=== PATIENT | female | born 1955 | race Caucasian/White ===

== ENCOUNTER 2017-07-06 10:20 | Day surgery (SDC) | payer OTHER ==
[~2017-07-06 10:20] MED LIST: Lactated Ringers 1,000 ML IV SCH; Sodium Chloride 0.9% 5 ML Syringe FLUSH PRN
[2017-07-06] MEDS ORDERED: Lactated Ringers 1,000 ML IV SCH (10:30)
[2017-07-06] MEDS ORDERED: Sodium Chloride 0.9% 5 ML Syringe FLUSH PRN (10:30)
[2017-07-06] MEDS ORDERED: Midazolam 1 MG/ML 2 ML SDV ONE (10:49)
[2017-07-06] MEDS ORDERED: Propofol 200 MG/20 ML SDV ONE (10:49)
[2017-07-06] MEDS ORDERED: fentaNYL 100 MCG/2 ML SDV ONE (10:49)
[2017-07-06] MEDS ORDERED: Lidocaine 2% 5 ML SDV ONE (11:39)
[2017-07-06] MEDS ORDERED: Midazolam 1 MG/ML 2 ML SDV IV ONE (12:49)
[2017-07-06] MEDS ORDERED: Propofol 200 MG/20 ML SDV IV ONE (12:49)
[2017-07-06] MEDS ORDERED: fentaNYL 100 MCG/2 ML SDV IV ONE (12:49)
--- NOTE | 2017-07-06 13:27 | PCM.OPNOTE ---
- General Post-Op/Procedure Note Date of Surgery/Procedure: 07/06/17 Operative Procedure(s): Upper GI endoscopy and lower GI endoscopy. Findings: The upper GI endoscopy was completely normal. The lower GI endoscopy revealed presence of diverticuli in the sigmoid colon. One of the diverticuli was bleeding. Anesthesia Technique: MAC Primary Surgeon: Hunter Cancino Condition: Good Free Text/Narrative:: INFORMED CONSENT: Patient is here today for elective upper GI endoscopy. All aspects of this procedure have been discussed with the patient. All possible complications also, including possibility of perforation, infection, pain, bleeding, numbness of the throat, swallowing difficulty and unknown complications. In the event of perforation the patient may need surgical exploration to repair the defect. The patient understands fully well. Patient did not have any further questions for me at the end of my interview. The patient wishes for me to proceed. INSTRUMENT USED: Video gastroscope Indications: Gastric bleeding and persistent upper abdominal pain and discomfort. Rule out peptic ulcer disease, gastric outlet obstruction, gastric malignancy etc. ANESTHESIA: [MAC] ASA CLASSIFICATION: [1] PROCEDURE PERFORMED: [] PHARYNX: Normal. ESOPHAGUS: Normal. Proximal: Normal. Middle: Normal. Lower: Normal. GE Junction: Normal. STOMACH: Normal. Cardia: Normal. Fundus: Normal. Lesser Curvature: Normal. Greater Curvature: Normal. Antrum: Normal. Pylorus: Normal. DUODENUM: Normal. First Part: Normal. Second Part: Normal. Third Part: Normal. RETROFLEXION: Normal. BIOPSY: None. TOLERANCE: Excellent. COMPLICATIONS: None.
--- NOTE | 2017-07-06 13:29 | PCM.OPNOTE ---
- General Post-Op/Procedure Note Date of Surgery/Procedure: 07/06/17 Operative Procedure(s): Colonoscopy Pre Op Diagnosis: Rectal bleeding, rule out diverticular bleeding, Colon malignancy, polyps etc. Anesthesia Technique: MAC Primary Surgeon: Hunter Cancino Condition: Good Free Text/Narrative:: INFORMED CONSENT: Patient is here today for elective colonoscopy. All aspects of this procedure have been discussed with the patient. All possible complications also, including possibility of perforation, infection, pain, bleeding and unknown complications. In the event of perforation patient may need to have abdominal exploration, colon resection, colostomy and even was discussed. Anesthetic complications were handled by anesthesia department. The patient understands fully well. Patient did not have any further questions for me at the end of my interview. The patient wishes for me to proceed. PREOPERATIVE DIAGNOSIS/INDICATIONS: [Lower GI bleeding] POSTOPERATIVE DIAGNOSIS: [Diverticular bleeding] INSTRUMENT USED: [place] videocolonoscope. ASA CLASSIFICATION: [] ANESTHESIA: Continuous EKG, oximetry and intermittent blood pressure and respiratory monitoring were performed throughout the procedure. IV Versed and Fentanyl were administered. PROCEDURE PERFORMED: Colonoscopy POSITIONS OF PATIENT: Left lateral. RECTUM: Normal. SIGMOID COLON: Normal. DESCENDING COLON: Normal. SPLENIC FLEXURE: Normal. TRANSVERSE COLON: Normal. HEPATIC FLEXURE: Normal. ASCENDING COLON: Normal. CECUM: Normal. ILEOCECAL VALVE: Normal. BIOPSY: None. TOLERANCE: Excellent. COMPLICATIONS: None. The patient is advised to diverticulosis diet. Follow-up in the clinic in 7-10 days.
[2017-07-06 14:54] VITALS: BP 112/82
== END 2017-07-06 14:45 | disposition home or self-care (01) ==
LOC: KA.SDS 10:20
PROVIDERS: ATTEND Family Medicine
DX: K57.31 Diverticulosis of large intestine without perforation or abscess with bleeding (principal); K21.9 Gastro-esophageal reflux disease without esophagitis; E04.1 Nontoxic single thyroid nodule; E03.9 Hypothyroidism, unspecified; E78.4 Other hyperlipidemia; Z79.899 Other long term (current) drug therapy; Z79.82 Long term (current) use of aspirin; Z88.0 Allergy status to penicillin
CPT/HCPCS: 43235; 45378; J2250; J2704; J3010; J7120

== ENCOUNTER 2019-04-30 10:10 | Emergency (ER) | payer OTHER ==
[2019-04-30 10:20] VITALS: BP 140/91; PULSE 60
--- NOTE | 2019-04-30 10:25 | EDM.PDOC ---
ED HPI GENERAL MEDICAL PROBLEM - General Chief Complaint: General Stated Complaint: dizziness Time Seen by Provider: 04/30/19 10:25 Source of Information: Reports: Patient History Limitations: Reports: No Limitations - History of Present Illness INITIAL COMMENTS - FREE TEXT/NARRATIVE: Jenny, 64-year-old female, awoke today with vertigo. She states this was severe , but similar to previous events. [place] it was difficult to get out of bed. Upon arising she realized that her meclizine had been exhausted and had no refills left on her prescription. She contacted Dr. Remy Cancino, or a refill and left a message with his service. She also speaks of a week plus of sinus drainage, congestion, and development of left ear pain. She denies any dentition issues, denies any trauma, denies any bumping or jarring of her head nor ear in a forceful manner. Denies any fever or chills, or recent illness that may contribute to this. She relates to me that Dr. Cancino returned a call to her as she was registering in the facility. left ear Pain Score (Numeric/FACES): 2 - Related Data Allergies Allergy/AdvReac Type Severity Reaction Status Date / Time Penicillins Allergy Hives Verified 04/30/19 10:16 Home Meds: Home Meds Ascorbic Acid [Vitamin C] 500 mg PO DAILY 05/19/14 [History] Joey/D3/Mag11/Zinc/Group Managing Director/Kike/Bor [Caltrate 600+D Plus Tablet] 1 tab PO DAILY 05/19 [History] Cetirizine HCl 1 tab PO DAILY PRN 05/19/14 [History] LORazepam 0.25 mg PO BID PRN 05/19/14 [History] Lactobacillus Acidophilus [Probiotic] 2 each PO DAILY 05/19/14 [History] Levothyroxine 1 tab PO ASDIRECTED 05/19/14 [History] Levothyroxine [Synthroid] 1 tab PO ASDIRECTED 05/19/14 [History] Zolpidem [Ambien] 5 mg PO BEDTIME PRN 05/19/14 [History] Aspirin [Halfprin] 81 mg PO DAILY 07/03/17 [History] Esomeprazole [NexIUM] 40 mg PO DAILY 07/03/17 [History] Fish Oil/[place]-3 Fatty Acids [Fish Oil 1,000 MG] 1 tab PO DAILY 07/03/17 [ History] Doxycycline Hyclate 100 mg PO BID 10 Days #20 capsule 04/30/19 [Rx] Meclizine HCl 25 mg PO Q6HR PRN #30 tablet 04/30/19 [Rx] Past Medical History HEENT History: Reports: Impaired Vision Gastrointestinal History: Reports: Colon Polyp, Diverticulosis 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 Constitutional: Denies: Fever HEENT: Denies: Dental Pain Respiratory: Reports: Cough. Denies: Shortness of Breath Cardiovascular: Denies: Chest Pain, Dyspnea on Exertion, Lightheadedness ED EXAM, GENERAL - Physical Exam Exam: See Below Exam Limited By: No Limitations General Appearance: Alert, WD/WN, No Apparent Distress Ears: Normal External Exam, Normal Canal, Hearing Grossly Normal, Normal TMs Ear Exam: Right Ear: TM normal (Left shows effusion. Dullness of the membrane), Bilateral Ear: Auricle Normal, Canal Normal Nose: Normal Inspection, Normal Mucosa, No Blood Throat/Mouth: Normal Inspection, Normal Lips, Normal Teeth, Normal Gums, Normal Oropharynx, Normal Voice, No Airway Compromise, Other (There is some exudate present in the posterior oral pharynx with mild streaking of the tissue.) Head: Atraumatic, Normocephalic, Sinus Tenderness Neck: Normal Inspection, Supple, Non-Tender, Full Range of Motion Respiratory/Chest: No Respiratory Distress, Lungs Clear, Normal Breath Sounds, No Accessory Muscle Use, Chest Non-Tender Cardiovascular: Normal Peripheral Pulses, Regular Rate, Rhythm, No Edema, No Gallop, No JVD, No Murmur, No Rub (Female) Exam: Deferred Rectal (Female) Exam: Deferred Extremities: Normal Inspection, Normal Range of Motion, Non-Tender, Normal Capillary Refill, No Pedal Edema Neurological: Alert, Oriented, CN II-XII Intact, Normal Cognition, Normal Gait, Normal Reflexes, No Motor/Sensory Deficits Psychiatric: Normal Affect, Normal Mood Skin Exam: Warm, Dry, Intact, Normal Color, No Rash Lymphatic: No Adenopathy Course - Vital Signs Last Recorded V/S: Last Vital Signs Temp 36.6 C 04/30/19 10:12 Pulse 60 04/30/19 10:12 Resp 16 04/30/19 10:12 BP 140/91 H 04/30/19 10:12 Pulse Ox 95 04/30/19 10:12 - Re-Assessments/Exams Free Text/Narrative Re-Assessment/Exam: 04/30/19 11:56 States this is very similar to past episodes of her recurrent vertigo and sinus infection. She declines further workup, as she states she would've been content to receive a refill of her meclizine. Departure - Departure Time of Disposition: 10:38 Disposition: Home, Self-Care 01 Condition: Good Clinical Impression: Sinusitis, Vertigo, Ear pain, left - Discharge Information *PRESCRIPTION DRUG MONITORING PROGRAM REVIEWED*: Not Applicable *COPY OF PRESCRIPTION DRUG MONITORING REPORT IN PATIENT AVERY: Not Applicable Prescriptions: Meclizine HCl 25 mg PO Q6HR PRN #30 tablet PRN Reason: Dizziness Doxycycline Hyclate 100 mg PO BID 10 Days #20 capsule Instructions: Vertigo, [id number], Sinusitis, Adult, [id number] Forms: ED Department Discharge Additional Instructions: Taking your meclizine as needed every 6 hours for dizziness. Doxycycline 100 mg twice daily for 10 days for the sinusitis infection, as well help with her ear pain as well. Increase her fluids specifically water over the course of the next 2 weeks. Take your medications as directed. Sepsis Event Note - Evaluation Sepsis Screening Result: No Definite Risk - Focused Exam Vital Signs: Vital Signs Temp Pulse Resp BP Pulse Ox 04/30/19 10:12 36.6 C 60 16 140/91 H 95 Date Exam was Performed: 04/30/19 Time Exam was Performed: 11:50 - Problem List & Annotations (1) Sinusitis SNOMED Code(s): 40850289 Code(s): J32.9 - CHRONIC SINUSITIS, UNSPECIFIED Status: Acute (2) Sinusitis, acute frontal SNOMED Code(s): 49638833 Code(s): J01.10 - ACUTE FRONTAL SINUSITIS, UNSPECIFIED Status: Acute Priority: High Qualifiers: Recurrence: not specified as recurrent Qualified Code(s): J01.10 - Acute frontal sinusitis, unspecified (3) Sinusitis, acute maxillary SNOMED Code(s): 51453470 Code(s): J01.00 - ACUTE MAXILLARY SINUSITIS, UNSPECIFIED Status: Acute Priority: High Qualifiers: Recurrence: not specified as recurrent Qualified Code(s): J01.00 - Acute maxillary sinusitis, unspecified (4) Vertigo SNOMED Code(s): 847802055 Code(s): R42 - DIZZINESS AND GIDDINESS Status: Chronic Priority: Medium (5) Ear pain, left SNOMED Code(s): 66383106, 711767042 Code(s): H92.02 - OTALGIA, LEFT EAR Status: Acute - Problem List Review Problem List Initiated/Reviewed/Updated: Yes - Assessment/Plan Plan: Taking your meclizine as needed every 6 hours for dizziness. Doxycycline 100 mg twice daily for 10 days for the sinusitis infection, as well help with her ear pain as well. Increase her fluids specifically water over the course of the next 2 weeks. Take your medications as directed.
== END 2019-04-30 10:45 | disposition home or self-care (01) ==
LOC: KA.ED 10:10
DX: J32.9 Chronic sinusitis, unspecified (principal); R42 Dizziness and giddiness; H92.02 Otalgia, left ear; Z88.0 Allergy status to penicillin
CPT/HCPCS: 99283